=== PATIENT | female | born 1975 | race Caucasian/White ===

== ENCOUNTER 2025-06-04 11:22 | Observation (INO) | payer MEDICARE ==
[2025-06-04] MEDS ORDERED: TYLENOL 325 MG ONE (12:05)
[2025-06-04] MEDS ORDERED: ROCEPHIN 1 GM / 100 ML NaCl 1 GM/100 ML IVPB IV ONE (12:05)
[2025-06-04 12:11] LABS: BASOPHIL % 0.3 % (0.1-1.2); Basophil (Absolute #) 0.01 x10^3/uL (0.01-0.08); Eosinophil (Absolute #) 0 x10^3/uL (0.04-0.36); Hematocrit 33.9 % (34.1-44.9); Hemoglobin 11.2 g/dL (11.2-15.7); IMMATURE GRAN # 0.01 x10^3u/L (0.001-0.031); IMMATURE GRAN % 0.3 % (0.001-0.429); Lymphocyte (Absolute #) 0.90 x10^3/uL (1.18-3.74); Mean Corpuscular Hemoglobin 30.9 pg (25.6-32.2); Mean Corpuscular Hgb Concent. 33.0 g/dL (32.2-35.5); Monocyte (Absolute #) 0.33 x10^3/uL (0.24-0.86); NUCLEATED RBC # 0.00 x10^3u/L (0.00-0.012); NUCLEATED RBC % 0.0 % (0.00-0.2); Platelet Count 178 x10^3/uL (182-369); Red Blood Count 3.63 x10^6/uL (3.93-5.22); White Blood Count 3.5 x10^3/uL (3.98-10.04)
[2025-06-04] MEDS: TYLENOL 325 MG PO STA (12:12)
[2025-06-04] MEDS: ROCEPHIN 1 GM / 100 ML NaCl 1 GM/100 ML IVPB IV ONE (12:25)
[2025-06-04 12:26] LABS: Calcium 8.7 mg/dL (8.4-10.2); Creatinine 1 0.86 mg/dL (0.52-1.04); EST GLOMERULAR FILTRATION RATE 83.8 ML/MIN; Glucose 93.0 mg/dL (74-106); Potassium 4.2 mmol/L (3.5-5.1); SGOT/AST 30.0 U/L (14-36); SGPT/ALT 22.0 U/L (0-35); Total Protein 6.7 g/dL (6.3-8.2)
[2025-06-04] MEDS: Rocephin 1000 MG INJ IM ONE (12:28)
[2025-06-04 12:31] LABS: Glucose, Urine Negative (Negative); Protein,Urine Dip Negative (Negative)
[2025-06-04 12:35] LABS: Carbon Dioxide 16.0 mmol/L (22-30)
[2025-06-04 12:40] LABS: Amourphous Crystal Many /HPF (None Seen)
[2025-06-04 13:18] LABS: INFLUENZA A NEGATIVE (NEGATIVE); INFLUENZA B NEGATIVE (NEGATIVE); RESPIRATORY SYNCTIAL VIRUS NEGATIVE (NEGATIVE); SARS-CoV-2 Xpert Express NEGATIVE (NEGATIVE)
--- NOTE | 2025-06-04 13:37 | XRAY ---
Indication: Confusion. Multiple contiguous axial images obtained through the head without contrast. Comparison: None Normal appearing brain parenchyma, ventricles, and bony calvarium for patient's age. Complete opacification right maxillary/right frontal sinuses and mild mucosal thickening both ethmoid sinuses. Mastoid air cells are clear. Impression: Normal CT head without contrast exam. Incidental paranasal sinus disease.
--- NOTE | 2025-06-04 14:21 | ERPHSYRPT ---
- History of Present Illness Time Seen by Provider: 06/04/25 14:16 Source: patient Exam Limitations: no limitations Patient Subjective Stated Complaint: patient residential team leader reports that bid manager stated patient woke up and has been very off with her behavior this morning, shes showing levels of confusion and was unsure on if it was AM or PM they say sshe hasnt been sleeping well either Triage Nursing Assessment: patient is alert and orientedx3, behavior is altered, she is extremely confused and irritable. skin warm dry and intact. lung sounds clear, skin is flushed nad hot to the touch. able to ambulate by self, susana has residential team leader for the house she lives in with her. pupils are pin point, according to residential team leader with her she has been altered on behavior for some time . Physician History: 49-year-old female history of seizures hypothyroidism ADD presents to our ED for evaluation of unusual behavior. Patient is accompanied by her caregiver. Patient denies pain but caregiver states patient has not been sleeping well. She states that patient appears confused and irritable. No other symptomology. Patient voices no other complaints or concerns at this time. Portions of this note were created with voice recognition technology. There may be grammatical, spelling, punctuation or sound alike errors Timing/Duration: today Severity: moderate Modifying Factors: Improves With: nothing Associated Symptoms: denies symptoms Allergies/Adverse Reactions: chocolate Allergy (Verified 06/04/25 11:54) Hx Tetanus, Diphtheria Vaccination/Date Given: Yes Hx Influenza Vaccination/Date Given: Yes Hx Pneumococcal Vaccination/Date Given: No Immunizations Up to Date: Yes Travel Risk - International Travel Have you traveled outside of the country in past 3 weeks: No - Emerging Infectious Disease Are you exhibiting symptoms associated with any current EIDs: No - Review of Systems All Other Systems: Reviewed and Negative - Past Medical History Pertinent Past Medical History: Yes Neurological History: Seizures Endocrine Medical History: Hyperthyroidism GI Medical History: Other Psycho-Social History: Attention Deficit Disorder, Other Female Reproductive Disorders: Menstrual Problems, Other - Past Surgical History Past Surgical History: No Neuro Surgical History: No Pertinent History Cardiac: No Pertinent History Respiratory: No Pertinent History Gastrointestinal: No Pertinent History Genitourinary: No Pertinent History Musculoskeletal: No Pertinent History Female Surgical History: No Pertinent History Significant Family History: no pertinent family hx - Female History Hx Now: No - Social History Smoking Status: Never smoker Exposure to second hand smoke: No - Social Determinants of Health Will the patient participate in the screening: Yes Do you worry about a steady place to live?: No Do you have any problems with any of the following?: No known problems In the past 12 months,have you had to go without utilities?: No Transportation Issues: No Has anyone in your support network made you feel unsafe?: No Have you or anyone in your house had to go w/o enough food: No - Nursing Vital Signs Nursing Vital Signs: Initial Vital Signs Temperature 98.1 F 06/04/25 11:23 Pulse Rate 75 06/04/25 11:23 Respiratory Rate 18 06/04/25 11:23 O2 Sat by Pulse Oximetry 95 06/04/25 11:23 Pain Scale Pain Intensity 0 - Physical Exam General Appearance: no apparent distress, alert Eye Exam: PERRL/EOMI, eyes nml inspection Ears, Nose, Throat Exam: normal ENT inspection, TMs normal, pharynx normal, moist mucous membranes Neck Exam: normal inspection, full range of motion Respiratory Exam: normal breath sounds, lungs clear, No respiratory distress Cardiovascular Exam: regular rate/rhythm, normal heart sounds, normal peripheral pulses Gastrointestinal/Abdomen Exam: soft, normal bowel sounds, No tenderness, No mass Back Exam: normal inspection, normal range of motion, No CVA tenderness, No vertebral tenderness Extremity Exam: normal inspection, normal range of motion, pelvis stable Neurologic Exam: alert, oriented x 3, cooperative, normal mood/affect, sensation nml, No motor deficits Skin Exam: normal color, warm, dry, No rash Lymphatic Exam: No adenopathy SpO2 Interpretation: normal SpO2: 99 O2 Delivery: Room Air - Course Nursing assessment & vital signs reviewed: Yes EKG Interpreted by Me: RATE (73), Sinus Rhythm, NORMAL AXIS, NORMAL INTERVALS, NORMAL QRS - CT Exams Head CT Interpretation: Tele-radiologist Report (Normal CT head. Paranasal sinus disease) Ordered Tests: Active Orders 24 hr Category Date Time Status Traffic Line Painter STAT Care 06/04/25 12:01 Active EKG-ER Only STAT Care 06/04/25 12:00 Active IV Insertion STAT Care 06/04/25 12:00 Active Pulse Oximetry (ED) STAT Care 06/04/25 12:00 Active HEAD WITHOUT CONTRAST [CT] Stat Exams 06/04/25 12:23 Completed BLOOD CULTURE Stat Lab 06/04/25 12:20 Received CBC W DIFF Stat Lab 06/04/25 11:55 Completed CMP Stat Lab 06/04/25 11:55 Completed CULTURE,URINE Stat Lab 06/04/25 12:01 Received Lactic Acid Stat Lab 06/04/25 12:00 Completed UA W/RFX UR CULTURE Stat Lab 06/04/25 12:01 Completed Urine Triage Profile Stat Lab 06/04/25 14:41 Ordered Transfer Order Routine Transfer 06/04/25 Ordered Medication Summary Generic Name Dose Route Start Last Admin Trade Name Freq PRN Reason Stop Dose Admin Sodium Chloride 1,000 mls @ 100 mls/hr 06/04/25 12:00 06/04/25 12:14 Sodium Chloride 0.9% 1000 Ml IV 07/04/25 11:59 100 mls/hr .Q10H KEESHA Administration Discontinued Medications Generic Name Dose Route Start Last Admin Trade Name Freq PRN Reason Stop Dose Admin Acetaminophen 975 mg 06/04/25 12:00 06/04/25 12:12 Acetaminophen 325 Mg Tablet PO 06/04/25 12:01 975 mg STAT STA Administration Acetaminophen Confirm 06/04/25 12:05 Acetaminophen 325 Mg Tablet Administered 06/04/25 12:06 Dose 975 mg .ROUTE .STK-MED ONE Ceftriaxone Sodium 1,000 mg 06/04/25 12:00 06/04/25 12:28 Ceftriaxone Sodium 1000 Mg Inj Vial IM 06/04/25 12:01 Not Given STAT ONE Ceftriaxone Sodium Confirm 06/04/25 12:05 Rocephin 1 Gm / 100 Ml Nacl Administered 06/04/25 12:06 Dose 1 gm in 100 mls @ ud IV .STK-MED ONE Ceftriaxone Sodium 1 gm in 100 mls @ 200 mls/hr 06/04/25 12:23 06/04/25 12:56 Rocephin 1 Gm / 100 Ml Nacl IV 06/04/25 12:52 Infused STAT ONE Infusion Lab/Rad Data: Laboratory Result Diagrams 06/04/25 11:55 06/04/25 11:55 Laboratory Results 06/04/25 06/04/25 06/04/25 Range/Units 12:25 12:25 12:01 WBC (3.98-10.04) x10^3/uL RBC (3.93-5.22) x10^6/uL Hgb (11.2-15.7) g/dL Hct (34.1-44.9) % MCV (79.4-94.8) fL MCH (25.6-32.2) pg MCHC (32.2-35.5) g/dL RDW (11.7-14.4) % Plt Count (182-369) x10^3/uL MPV (9.4-12.3) fL Gran % (34.0-71.1) % Immature Gran % (Auto) (0.001-0.429) % Nucleat RBC Rel Count (0.00-0.2) % Eos # (Auto) (0.04-0.36) x10^3/uL Immature Gran # (Auto) (0.001-0.031) x10^3u/L Absolute Lymphs (auto) (1.18-3.74) x10^3/uL Absolute Monos (auto) (0.24-0.86) x10^3/uL Absolute Nucleated RBC (0.00-0.012) x10^3u/L Lymphocytes % (19.3-51.7) % Monocytes % (4.7-12.5) % Eosinophils % (0.7-5.8) % Basophils % (0.1-1.2) % Absolute Granulocytes (1.56-6.13) x10^3/uL Basophils # (0.01-0.08) x10^3/uL Sodium (135-145) mmol/L Potassium (3.5-5.1) mmol/L Chloride (98-107) mmol/L Carbon Dioxide (22-30) mmol/L Anion Gap (5-15) MEQ/L BUN (7-17) mg/dL Creatinine (0.52-1.04) mg/dL Estimated GFR ML/MIN Glucose (74-106) mg/dL Lactic Acid (0.4-2.0) Calcium (8.4-10.2) mg/dL Total Bilirubin (0.2-1.3) mg/dL AST (14-36) U/L ALT (0-35) U/L Alkaline Phosphatase (38-126) U/L Serum Total Protein (6.3-8.2) g/dL Albumin (3.5-5.0) g/dL Urine Color Yellow (Yellow) Urine Appearance Turbid A (Clear) Urine pH 7.5 (4.6-8.0) Ur Specific [place] 1.015 (1.005-1.030) Urine Protein Negative (Negative) Urine Glucose (UA) Negative (Negative) mg/dL Urine Ketones Negative (Negative) Urine Blood NHT (Negative) Urine Nitrite Negative (Negative) Urine Bilirubin Negative (Negative) Urine Urobilinogen 1.0 A (0.2) mg/dL Ur Leukocyte Esterase Moderate A (Negative) U Hyaline Cast (Auto) NONE SEEN (0-2) /LPF Urine Microscopic RBC 11-20 A (0-5) /HPF Urine Microscopic WBC 6-10 A (0-5) /HPF Ur Epithelial Cells Moderate A (None Seen) /HPF Amorphous Crystals Many A (None Seen) /HPF Urine Bacteria Many A (None Seen) /HPF Urine Culture Reflexed YES (NO) Influenza Type A Ag NEGATIVE (NEGATIVE) Influenza Type B Ag NEGATIVE (NEGATIVE) RSV (PCR) NEGATIVE (NEGATIVE) SARS-CoV-2 (PCR) NEGATIVE (NEGATIVE) Group A Strep Antibody NOT DETECTED (NEGATIVE) 06/04/25 06/04/25 06/04/25 Range/Units 12:00 11:55 11:55 WBC 3.5 L (3.98-10.04) x10^3/uL RBC 3.63 L (3.93-5.22) x10^6/uL Hgb 11.2 (11.2-15.7) g/dL Hct 33.9 L (34.1-44.9) % MCV 93.4 (79.4-94.8) fL MCH 30.9 (25.6-32.2) pg MCHC 33.0 (32.2-35.5) g/dL RDW 13.2 (11.7-14.4) % Plt Count 178 L (182-369) x10^3/uL MPV 10.1 (9.4-12.3) fL Gran % 64.6 (34.0-71.1) % Immature Gran % (Auto) 0.3 (0.001-0.429) % Nucleat RBC Rel Count 0.0 (0.00-0.2) % Eos # (Auto) 0 L (0.04-0.36) x10^3/uL Immature Gran # (Auto) 0.01 (0.001-0.031) x10^3u/L Absolute Lymphs (auto) 0.90 L (1.18-3.74) x10^3/uL Absolute Monos (auto) 0.33 (0.24-0.86) x10^3/uL Absolute Nucleated RBC 0.00 (0.00-0.012) x10^3u/L Lymphocytes % 25.5 (19.3-51.7) % Monocytes % 9.3 (4.7-12.5) % Eosinophils % 0.0 L (0.7-5.8) % Basophils % 0.3 (0.1-1.2) % Absolute Granulocytes 2.28 (1.56-6.13) x10^3/uL Basophils # 0.01 (0.01-0.08) x10^3/uL Sodium 135 (135-145) mmol/L Potassium 4.2 (3.5-5.1) mmol/L Chloride 108 H (98-107) mmol/L Carbon Dioxide 16 L* (22-30) mmol/L Anion Gap 15.4 H (5-15) MEQ/L BUN 15 (7-17) mg/dL Creatinine 0.86 (0.52-1.04) mg/dL Estimated GFR 83.8 ML/MIN Glucose 93 (74-106) mg/dL Lactic Acid 0.9 (0.4-2.0) Calcium 8.7 (8.4-10.2) mg/dL Total Bilirubin 0.30 (0.2-1.3) mg/dL AST 30 (14-36) U/L ALT 22 (0-35) U/L Alkaline Phosphatase 74 (38-126) U/L Serum Total Protein 6.7 (6.3-8.2) g/dL Albumin 4.2 (3.5-5.0) g/dL Urine Color (Yellow) Urine Appearance (Clear) Urine pH (4.6-8.0) Ur Specific [place] (1.005-1.030) Urine Protein (Negative) Urine Glucose (UA) (Negative) mg/dL Urine Ketones (Negative) Urine Blood (Negative) Urine Nitrite (Negative) Urine Bilirubin (Negative) Urine Urobilinogen (0.2) mg/dL Ur Leukocyte Esterase (Negative) U Hyaline Cast (Auto) (0-2) /LPF Urine Microscopic RBC (0-5) /HPF Urine Microscopic WBC (0-5) /HPF Ur Epithelial Cells (None Seen) /HPF Amorphous Crystals (None Seen) /HPF Urine Bacteria (None Seen) /HPF Urine Culture Reflexed (NO) Influenza Type A Ag (NEGATIVE) Influenza Type B Ag (NEGATIVE) RSV (PCR) (NEGATIVE) SARS-CoV-2 (PCR) (NEGATIVE) Group A Strep Antibody (NEGATIVE) - Progress Progress: improved Progress Note: 06/04/25 14:59 49-year-old female history of seizures hypothyroidism ADD presents to our ED for evaluation of unusual behavior. Patient is accompanied by her caregiver. Patient denies pain but caregiver states patient has not been sleeping well. She states that patient appears confused and irritable. No other symptomology. Physical exam nonremarkable. Workup reveals a urinary tract infection with a leukopenia. IV antibiotics obtained. Blood cultures pending. Patient is acidotic with a bicarb of 16. IV fluids infusing. Patient reassessed. Vital stable. Patient will require hospitalization for further evaluation and treatment. Caregiver at bedside. She agrees to admission at [facility] for further evaluation and treatment. They voiced no other complaints or concerns at this time. Portions of this note were created with voice recognition technology. There may be grammatical, spelling, punctuation or sound alike errors History obtained from patient and primary caregiver. Differential diagnosis includes sepsis, TIA, lactic acidosis Portions of this note were created with voice recognition technology. There may be grammatical, spelling, punctuation or sound alike errors Complexity of problems addressed is moderate acute complicated. No critical care time. Complexity of data reviewed and analyzed is extensive. Test ordered test reviewed results analyzed and correlated clinically with history and physical exam. Management discussed with hospitalist who accepts admission to observation at 2:54 PM. Risk of complication and or risk of morbidity/mortality of patient management is high. Patient requires hospitalization for further evaluation and treatment. Vital stable. Time spent in patient is approximately 15 minutes. Plan of care established for shared decision making. No social determinants of health present to impede follow-up. Portions of this note were created with voice recognition technology. There may be grammatical, spelling, punctuation or sound alike errors Counseled pt/family regarding: lab results, diagnosis, need for follow-up - Departure Departure Disposition: Observation Clinical Impression: Leukopenia, Metabolic acidosis, Urinary tract infection, Paranasal sinus disease Condition: Stable Critical Care Time: No Referrals: ELADIA GUILLERMO NP [Primary Care Provider, [facility]] - Follow up/PCP as directed
[2025-06-04 15:30] LABS: Amphetamine,Urine NEGATIVE (NEGATIVE); Barbiturate,Urine NEGATIVE (NEGATIVE); Benzodiazepine,Urine NEGATIVE (NEGATIVE); Cocaine,Urine NEGATIVE (NEGATIVE); Methadone,Urine NEGATIVE (NEGATIVE); Opiate,Urine NEGATIVE (NEGATIVE); PCP,Urine NEGATIVE (NEGATIVE); THC,Urine NEGATIVE (NEGATIVE)
--- NOTE | 2025-06-04 15:42 | PCM.HP ---
History of Present Illness - Chief Complaint Chief Complaint: Altered mental status, metabolic acidosis Date: 06/04/25 History of Present Illness: is a 49 year old female with a pmhx of seizure disorder, GERD, OCD,Constipation, hypothyroidism, and ADHD who presented to ED 06/04/25 with caregiver Norma present providing history. Per caregiver report over the past few days patient has been more fatigued than normal and not sleeping well. This morning the patient was again noted to appear more fatigued than normal but seemed increasing confused and unable to orient to time. She also reports that patient had recent complaints of low abdominal pain. No recent seizures, fevers, or medication changes were reported. Upon my exam patient is A&O x 3 with no complaints. Upon arrival to ED, vitals stable. EKG demonstrated normal sinus rhythm at 73 bpm with normal axis, intervals, and QRS morphology. CT head without contrast revealed no acute intracranial abnormality; mild incidental paranasal sinus disease was noted. Lab findings remarkable for leukopenia with WBC 3.5 , chloride 108 , CO2 16, and an anion gap of 15.4, consistent with mild metabolic acidosis. Urinalysis demonstrated moderate leukocyte esterase, microscopic RBCs and WBCs, amorphous crystals, and the presence of bacteriasuggestive of urinary tract infection. Respiratory viral panel was negative. In the ED, she received IV fluids, ceftriaxone, and acetaminophen. She was admitted for further observation and management of suspected urinary tract infection with associated metabolic encephalopathy and mild metabolic acidosis. - Review of Systems Constitutional: Fatigue Eyes: No Symptoms Ears, Nose, & Throat: No Symptoms Respiratory: No Symptoms Cardiac: No Symptoms Abdominal/Gastrointestinal: No Symptoms Genitourinary Symptoms: No Symptoms Musculoskeletal: No Symptoms Skin: No Symptoms Neurological: No Symptoms Psychological: No Symptoms Endocrine: No Symptoms Hematologic/Lymphatic: No Symptoms Immunological/Allergic: No Symptoms Medications & Allergies Allergies/Adverse Reactions: Allergies Allergy/AdvReac Type Severity Reaction Status Date / Time chocolate Allergy Verified 06/04/25 11:54 - Past Medical History Past Medical History: Yes Neurological History: Seizures Endocrine Medical History: Hyperthyroidism GI Medical History: Other Pyscho-Social History: Attention Deficit Disorder, Other Reproductive Disorders: Menstrual Problems, Other - Female History Are you now?: No - Past Surgical History Past Surgical History: No Neuro Surgical History: No Pertinent History Cardiac History: No Pertinent History Respiratory Surgery: No Pertinent History GI Surgical History: No Pertinent History Genitourinary Surgical Hx: No Pertinent History Musculskeletal Surgical Hx: No Pertinent History Female Surgical History: No Pertinent History Significant Family History: no pertinent family hx - Social History Smoking Status: Never smoker Exposure to second hand smoke: No Alcohol: None - Social Determinants of Health Will the patient participate in the screening: Yes Do you worry about a steady place to live?: No Do you have any problems with any of the following?: No known problems In the past 12 months,have you had to go without utilities?: No Have you or anyone in your house had to go without enough: No Transportation Issues: No Has anyone in your support network made you feel unsafe?: No - Physical Exam Vital Signs: Vital Signs - 24 hr Temp Pulse Resp BP BP Pulse Ox 06/04/25 15:27 97.7 F 71 16 122/75 99 06/04/25 15:02 99 06/04/25 15:00 66 18 152/99 99 06/04/25 14:57 152/86 06/04/25 14:42 65 16 111/66 99 06/04/25 14:40 63 16 152/86 99 06/04/25 14:30 165/106 97 06/04/25 14:20 63 19 100 06/04/25 14:10 62 15 99 06/04/25 14:00 65 16 99 06/04/25 13:50 67 14 99 06/04/25 13:40 66 16 99 06/04/25 13:30 67 19 100 06/04/25 13:20 70 18 100 06/04/25 13:10 71 16 06/04/25 13:00 72 21 100 06/04/25 12:54 71 15 99 06/04/25 12:40 71 16 100 06/04/25 12:30 70 18 100 06/04/25 12:20 72 13 98 06/04/25 12:10 74 15 95 06/04/25 12:00 73 16 100 06/04/25 11:58 98 F 74 18 99 06/04/25 11:23 98.1 F 75 18 95 General Appearance: no apparent distress Neurologic Exam: alert, oriented x 3, cooperative Eye Exam: PERRL/EOMI Ears, Nose, Throat Exam: normal ENT inspection Neck Exam: normal inspection Respiratory Exam: normal breath sounds, lungs clear Cardiovascular Exam: regular rate/rhythm, normal heart sounds Gastrointestinal/Abdomen Exam: soft, normal bowel sounds Pelvic Exam: not done Rectal Exam: deferred Back Exam: normal inspection Extremity Exam: normal inspection Skin Exam: normal color Results - Labs Lab/Micro Results: Lab Results-Last 24 Hours 06/04/25 06/04/25 06/04/25 Range/Units 11:55 11:55 12:00 WBC 3.5 L (3.98-10.04) x10^3/uL RBC 3.63 L (3.93-5.22) x10^6/uL Hgb 11.2 (11.2-15.7) g/dL Hct 33.9 L (34.1-44.9) % MCV 93.4 (79.4-94.8) fL MCH 30.9 (25.6-32.2) pg MCHC 33.0 (32.2-35.5) g/dL RDW 13.2 (11.7-14.4) % Plt Count 178 L (182-369) x10^3/uL MPV 10.1 (9.4-12.3) fL Gran % 64.6 (34.0-71.1) % Immature Gran % (Auto) 0.3 (0.001-0.429) % Nucleat RBC Rel Count 0.0 (0.00-0.2) % Eos # (Auto) 0 L (0.04-0.36) x10^3/uL Immature Gran # (Auto) 0.01 (0.001-0.031) x10^3u/L Absolute Lymphs (auto) 0.90 L (1.18-3.74) x10^3/uL Absolute Monos (auto) 0.33 (0.24-0.86) x10^3/uL Absolute Nucleated RBC 0.00 (0.00-0.012) x10^3u/L Lymphocytes % 25.5 (19.3-51.7) % Monocytes % 9.3 (4.7-12.5) % Eosinophils % 0.0 L (0.7-5.8) % Basophils % 0.3 (0.1-1.2) % Absolute Granulocytes 2.28 (1.56-6.13) x10^3/uL Basophils # 0.01 (0.01-0.08) x10^3/uL Sodium 135 (135-145) mmol/L Potassium 4.2 (3.5-5.1) mmol/L Chloride 108 H (98-107) mmol/L Carbon Dioxide 16 L* (22-30) mmol/L Anion Gap 15.4 H (5-15) MEQ/L BUN 15 (7-17) mg/dL Creatinine 0.86 (0.52-1.04) mg/dL Estimated GFR 83.8 ML/MIN Glucose 93 (74-106) mg/dL Lactic Acid 0.9 (0.4-2.0) Calcium 8.7 (8.4-10.2) mg/dL Total Bilirubin 0.30 (0.2-1.3) mg/dL AST 30 (14-36) U/L ALT 22 (0-35) U/L Alkaline Phosphatase 74 (38-126) U/L Serum Total Protein 6.7 (6.3-8.2) g/dL Albumin 4.2 (3.5-5.0) g/dL Urine Color (Yellow) Urine Appearance (Clear) Urine pH (4.6-8.0) Ur Specific Crooks (1.005-1.030) Urine Protein (Negative) Urine Glucose (UA) (Negative) mg/dL Urine Ketones (Negative) Urine Blood (Negative) Urine Nitrite (Negative) Urine Bilirubin (Negative) Urine Urobilinogen (0.2) mg/dL Ur Leukocyte Esterase (Negative) U Hyaline Cast (Auto) (0-2) /LPF Urine Microscopic RBC (0-5) /HPF Urine Microscopic WBC (0-5) /HPF Ur Epithelial Cells (None Seen) /HPF Amorphous Crystals (None Seen) /HPF Urine Bacteria (None Seen) /HPF Urine Culture Reflexed (NO) Urine Opiates Level (NEGATIVE) Ur Methadone (NEGATIVE) Urine Barbiturates (NEGATIVE) Ur Phencyclidine (PCP) (NEGATIVE) Urine Amphetamine (NEGATIVE) U Benzodiazepine Level (NEGATIVE) Urine Cocaine (NEGATIVE) Urine Marijuana (THC) (NEGATIVE) Influenza Type A Ag (NEGATIVE) Influenza Type B Ag (NEGATIVE) RSV (PCR) (NEGATIVE) SARS-CoV-2 (PCR) (NEGATIVE) Group A Strep Antibody (NEGATIVE) 06/04/25 06/04/25 06/04/25 Range/Units 12: 12: 12:25 WBC (3.98-10.04) x10^3/uL RBC (3.93-5.22) x10^6/uL Hgb (11.2-15.7) g/dL Hct (34.1-44.9) % MCV (79.4-94.8) fL MCH (25.6-32.2) pg MCHC (32.2-35.5) g/dL RDW (11.7-14.4) % Plt Count (182-369) x10^3/uL MPV (9.4-12.3) fL Gran % (34.0-71.1) % Immature Gran % (Auto) (0.001-0.429) % Nucleat RBC Rel Count (0.00-0.2) % Eos # (Auto) (0.04-0.36) x10^3/uL Immature Gran # (Auto) (0.001-0.031) x10^3u/L Absolute Lymphs (auto) (1.18-3.74) x10^3/uL Absolute Monos (auto) (0.24-0.86) x10^3/uL Absolute Nucleated RBC (0.00-0.012) x10^3u/L Lymphocytes % (19.3-51.7) % Monocytes % (4.7-12.5) % Eosinophils % (0.7-5.8) % Basophils % (0.1-1.2) % Absolute Granulocytes (1.56-6.13) x10^3/uL Basophils # (0.01-0.08) x10^3/uL Sodium (135-145) mmol/L Potassium (3.5-5.1) mmol/L Chloride (98-107) mmol/L Carbon Dioxide (22-30) mmol/L Anion Gap (5-15) MEQ/L BUN (7-17) mg/dL Creatinine (0.52-1.04) mg/dL Estimated GFR ML/MIN Glucose (74-106) mg/dL Lactic Acid (0.4-2.0) Calcium (8.4-10.2) mg/dL Total Bilirubin (0.2-1.3) mg/dL AST (14-36) U/L ALT (0-35) U/L Alkaline Phosphatase (38-126) U/L Serum Total Protein (6.3-8.2) g/dL Albumin (3.5-5.0) g/dL Urine Color Yellow (Yellow) Urine Appearance Turbid A (Clear) Urine pH 7.5 (4.6-8.0) Ur Specific Crooks 1.015 (1.005-1.030) Urine Protein Negative (Negative) Urine Glucose (UA) Negative (Negative) mg/dL Urine Ketones Negative (Negative) Urine Blood NHT (Negative) Urine Nitrite Negative (Negative) Urine Bilirubin Negative (Negative) Urine Urobilinogen 1.0 A (0.2) mg/dL Ur Leukocyte Esterase Moderate A (Negative) U Hyaline Cast (Auto) NONE SEEN (0-2) /LPF Urine Microscopic RBC 11-20 A (0-5) /HPF Urine Microscopic WBC 6-10 A (0-5) /HPF Ur Epithelial Cells Moderate A (None Seen) /HPF Amorphous Crystals Many A (None Seen) /HPF Urine Bacteria Many A (None Seen) /HPF Urine Culture Reflexed YES (NO) Urine Opiates Level NEGATIVE (NEGATIVE) Ur Methadone NEGATIVE (NEGATIVE) Urine Barbiturates NEGATIVE (NEGATIVE) Ur Phencyclidine (PCP) NEGATIVE (NEGATIVE) Urine Amphetamine NEGATIVE (NEGATIVE) U Benzodiazepine Level NEGATIVE (NEGATIVE) Urine Cocaine NEGATIVE (NEGATIVE) Urine Marijuana (THC) NEGATIVE (NEGATIVE) Influenza Type A Ag (NEGATIVE) Influenza Type B Ag (NEGATIVE) RSV (PCR) (NEGATIVE) SARS-CoV-2 (PCR) (NEGATIVE) Group A Strep Antibody NOT DETECTED (NEGATIVE) 06/04/25 Range/Units 12:25 WBC (3.98-10.04) x10^3/uL RBC (3.93-5.22) x10^6/uL Hgb (11.2-15.7) g/dL Hct (34.1-44.9) % MCV (79.4-94.8) fL MCH (25.6-32.2) pg MCHC (32.2-35.5) g/dL RDW (11.7-14.4) % Plt Count (182-369) x10^3/uL MPV (9.4-12.3) fL Gran % (34.0-71.1) % Immature Gran % (Auto) (0.001-0.429) % Nucleat RBC Rel Count (0.00-0.2) % Eos # (Auto) (0.04-0.36) x10^3/uL Immature Gran # (Auto) (0.001-0.031) x10^3u/L Absolute Lymphs (auto) (1.18-3.74) x10^3/uL Absolute Monos (auto) (0.24-0.86) x10^3/uL Absolute Nucleated RBC (0.00-0.012) x10^3u/L Lymphocytes % (19.3-51.7) % Monocytes % (4.7-12.5) % Eosinophils % (0.7-5.8) % Basophils % (0.1-1.2) % Absolute Granulocytes (1.56-6.13) x10^3/uL Basophils # (0.01-0.08) x10^3/uL Sodium (135-145) mmol/L Potassium (3.5-5.1) mmol/L Chloride (98-107) mmol/L Carbon Dioxide (22-30) mmol/L Anion Gap (5-15) MEQ/L BUN (7-17) mg/dL Creatinine (0.52-1.04) mg/dL Estimated GFR ML/MIN Glucose (74-106) mg/dL Lactic Acid (0.4-2.0) Calcium (8.4-10.2) mg/dL Total Bilirubin (0.2-1.3) mg/dL AST (14-36) U/L ALT (0-35) U/L Alkaline Phosphatase (38-126) U/L Serum Total Protein (6.3-8.2) g/dL Albumin (3.5-5.0) g/dL Urine Color (Yellow) Urine Appearance (Clear) Urine pH (4.6-8.0) Ur Specific Crooks (1.005-1.030) Urine Protein (Negative) Urine Glucose (UA) (Negative) mg/dL Urine Ketones (Negative) Urine Blood (Negative) Urine Nitrite (Negative) Urine Bilirubin (Negative) Urine Urobilinogen (0.2) mg/dL Ur Leukocyte Esterase (Negative) U Hyaline Cast (Auto) (0-2) /LPF Urine Microscopic RBC (0-5) /HPF Urine Microscopic WBC (0-5) /HPF Ur Epithelial Cells (None Seen) /HPF Amorphous Crystals (None Seen) /HPF Urine Bacteria (None Seen) /HPF Urine Culture Reflexed (NO) Urine Opiates Level (NEGATIVE) Ur Methadone (NEGATIVE) Urine Barbiturates (NEGATIVE) Ur Phencyclidine (PCP) (NEGATIVE) Urine Amphetamine (NEGATIVE) U Benzodiazepine Level (NEGATIVE) Urine Cocaine (NEGATIVE) Urine Marijuana (THC) (NEGATIVE) Influenza Type A Ag NEGATIVE (NEGATIVE) Influenza Type B Ag NEGATIVE (NEGATIVE) RSV (PCR) NEGATIVE (NEGATIVE) SARS-CoV-2 (PCR) NEGATIVE (NEGATIVE) Group A Strep Antibody (NEGATIVE) - Radiology Impressions Radiology Exams & Impressions: Radiology Procedures Category Date Time Status HEAD WITHOUT CONTRAST [CT] Stat Exams 06/04/25 12:23 Completed Assessment/Plan (1) Metabolic encephalopathy Current Visit: Yes Status: Acute Assessment & Plan: -Confusion and disorientation likely multifactorial: infectious and metabolic. -CT head negative for acute pathology; no focal deficits. -IVF -Continue empiric ceftriaxone pending culture results. -Neuro checks and serial mental status assessments. Code(s): G93.41 - METABOLIC ENCEPHALOPATHY (2) UTI (urinary tract infection) Current Visit: Yes Status: Acute Assessment & Plan: UA with leukocytes, RBCs, and bacteria. -Continue ceftriaxone; adjust per culture results. -Monitor for fever or flank pain. Code(s): N39.0 - URINARY TRACT INFECTION, SITE NOT SPECIFIED (3) Metabolic acidosis Current Visit: Yes Status: Acute Assessment & Plan: -CO2 16 with AG 15.4 -Continue IVF; repeat labs every 4 hours (BMP) to assess for resolution. Code(s): E87.20 - ACIDOSIS, UNSPECIFIED (4) Seizure disorder Current Visit: Yes Status: Acute Assessment & Plan: -Continue home antiepileptic therapy; monitor for breakthrough events. Code(s): G40.909 - EPILEPSY, UNSP, NOT INTRACTABLE, WITHOUT STATUS EPILEPTICUS (5) Hypothyroid Current Visit: Yes Status: Acute Assessment & Plan: -continue levothyroxine -check TSH Code(s): E03.9 - HYPOTHYROIDISM, UNSPECIFIED (6) ADHD Current Visit: Yes Status: Acute Assessment & Plan: -Continue home regimen as tolerated; hold stimulant therapy if agitation or insomnia worsen VTE: SCD PPI: protonix Dispo: 1-2 days Code status: full code Plan of care time spent greater than 40 mins Telemedicine Encounter - Telemedicine Encounter Telemedicine Encounter: "The entirety of this encounter was performed via Telemedicine" This visit was performed using real-time audio and video connection between my location and thepatients locationwith the assistance of a surrogateat the patients location. Written or verbal consent was obtained from the patient/guardian to perform this visit [facility] technology. Any patient questions regarding the telemedicine interaction were answered.
[2025-06-04 16:36] LABS: Calcium 8.8 mg/dL (8.4-10.2); Carbon Dioxide 19.0 mmol/L (22-30); Creatinine 1 0.87 mg/dL (0.52-1.04); EST GLOMERULAR FILTRATION RATE 82.6 ML/MIN; Glucose 89.0 mg/dL (74-106); Potassium 4.1 mmol/L (3.5-5.1)
[2025-06-04] MEDS ORDERED: MEDICATION INTERVENTION MC SCH ×3 (17:15)
[2025-06-04 19:57] LABS: Calcium 8.9 mg/dL (8.4-10.2); Carbon Dioxide 20.0 mmol/L (22-30); Creatinine 1 0.98 mg/dL (0.52-1.04); EST GLOMERULAR FILTRATION RATE 71.6 ML/MIN; Glucose 156.0 mg/dL (74-106); Potassium 3.7 mmol/L (3.5-5.1)
[2025-06-04] MEDS ORDERED: CLOZAPINE 100 MG PO SCH (22:00)
[2025-06-04] MEDS ORDERED: TETRAHYDRALAZINE 0.05% Drops OP SCH (22:00)
[2025-06-04] MEDS ORDERED: CLOZAPINE 50 MG PO SCH (22:00)
[2025-06-04] MEDS ORDERED: [UNRECOGNIZED DRUG - OTHER] PO SCH (22:00)
[2025-06-04] MEDS ORDERED: DESMOPRESSIN ACETATE 0.2 MG PO SCH (22:00)
[2025-06-04] MEDS: Ativan 0.5 MG PO SCH (22:52)
[2025-06-04] MEDS: lamICTAL 100MG TABLET PO SCH (22:53)
[2025-06-04] MEDS: MELATONIN PO SCH (22:55)
[2025-06-04] MEDS: DESYREL 50 MG PO SCH (22:55)
[2025-06-04] MEDS: Artificial Tears 15 ML OP SCH (22:58)
[2025-06-04 23:32] VITALS: RESP 16
[2025-06-05 05:05] LABS: BASOPHIL % 0.0 % (0.1-1.2); Basophil (Absolute #) 0 x10^3/uL (0.01-0.08); Eosinophil (Absolute #) 0 x10^3/uL (0.04-0.36); Hematocrit 34.9 % (34.1-44.9); Hemoglobin 11.1 g/dL (11.2-15.7); IMMATURE GRAN # 0.02 x10^3u/L (0.001-0.031); IMMATURE GRAN % 0.5 % (0.001-0.429); Lymphocyte (Absolute #) 1.20 x10^3/uL (1.18-3.74); Mean Corpuscular Hemoglobin 30.0 pg (25.6-32.2); Mean Corpuscular Hgb Concent. 31.8 g/dL (32.2-35.5); Monocyte (Absolute #) 0.40 x10^3/uL (0.24-0.86); NUCLEATED RBC # 0.00 x10^3u/L (0.00-0.012); NUCLEATED RBC % 0.0 % (0.00-0.2); Platelet Count 178 x10^3/uL (182-369); Red Blood Count 3.70 x10^6/uL (3.93-5.22); White Blood Count 3.6 x10^3/uL (3.98-10.04)
--- NOTE | 2025-06-05 05:17 | PCM.NOTE ---
Date and Time: 06/05/25 0514 Subjective Assessment: is a 49 year old female with a pmhx of seizure disorder, GERD, OCD,Constipation, hypothyroidism, and ADHD who presented to ED 06/04/25 with caregiver Norma present providing history. Per caregiver report over the past few days patient has been more fatigued than normal and not sleeping well. This morning the patient was again noted to appear more fatigued than normal but seemed increasing confused and unable to orient to time. She also reports that patient had recent complaints of low abdominal pain. No recent seizures, fevers, or medication changes were reported. Upon my exam patient is A&O x 3 with no complaints. Upon arrival to ED, vitals stable. EKG demonstrated normal sinus rhythm at 73 bpm with normal axis, intervals, and QRS morphology. CT head without contrast revealed no acute intracranial abnormality; mild incidental paranasal sinus disease was noted. Lab findings remarkable for leukopenia with WBC 3.5 , chloride 108 , CO2 16, and an anion gap of 15.4, consistent with mild metabolic acidosis. Urinalysis demonstrated moderate leukocyte esterase, microscopic RBCs and WBCs, amorphous crystals, and the presence of bacteriasuggestive of urinary tract infection. Respiratory viral panel was negative. In the ED, she received IV fluids, ceftriaxone, and acetaminophen. She was admitted for further observation and management of suspected urinary tract infection with associated metabolic encephalopathy and mild metabolic acidosis. Objective Data Vital Signs: Vital Signs - 24 hr Temp Pulse Resp BP BP Pulse Ox 06/05/25 03:37 99.4 F 80 16 108/61 96 06/04/25 23:31 99.2 F 87 16 99/61 97 06/04/25 20:00 98.5 F 87 18 103/65 100 06/04/25 15:38 97.7 F 71 16 122/75 99 06/04/25 15:27 97.7 F 71 16 122/75 99 06/04/25 15:02 99 06/04/25 15:00 66 18 152/99 99 06/04/25 14:57 152/86 06/04/25 14:42 65 16 111/66 99 06/04/25 14:40 63 16 152/86 99 06/04/25 14:30 165/106 97 06/04/25 14:20 63 19 100 06/04/25 14:10 62 15 99 06/04/25 14:00 65 16 99 06/04/25 13:50 67 14 99 06/04/25 13:40 66 16 99 06/04/25 13:30 67 19 100 06/04/25 13:20 70 18 100 06/04/25 13:10 71 16 06/04/25 13:00 72 21 100 06/04/25 12:54 71 15 99 06/04/25 12:40 71 16 100 06/04/25 12:30 70 18 100 06/04/25 12:20 72 13 98 06/04/25 12:10 74 15 95 06/04/25 12:00 73 16 100 06/04/25 11:58 98 F 74 18 99 06/04/25 11:23 98.1 F 75 18 95 Pain Assessment - Last Documented Pain Intensity 0 Pain Scale Used 0-10 Pain Scale Intake and Output: Intake & Output 06/02/25 06/03/25 06/04/25 06/05/25 11:59 11:59 11:59 11:59 Intake Total 680 Output Total 1100 Balance -420 Weight 86.8 kg 86.8 kg Lab Results: Lab Results-Last 24 Hours 06/04/25 06/04/25 06/04/25 Range/Units 11:55 11:55 12:00 WBC 3.5 L (3.98-10.04) x10^3/uL RBC 3.63 L (3.93-5.22) x10^6/uL Hgb 11.2 (11.2-15.7) g/dL Hct 33.9 L (34.1-44.9) % MCV 93.4 (79.4-94.8) fL MCH 30.9 (25.6-32.2) pg MCHC 33.0 (32.2-35.5) g/dL RDW 13.2 (11.7-14.4) % Plt Count 178 L (182-369) x10^3/uL MPV 10.1 (9.4-12.3) fL Gran % 64.6 (34.0-71.1) % Immature Gran % (Auto) 0.3 (0.001-0.429) % Nucleat RBC Rel Count 0.0 (0.00-0.2) % Eos # (Auto) 0 L (0.04-0.36) x10^3/uL Immature Gran # (Auto) 0.01 (0.001-0.031) x10^3u/L Absolute Lymphs (auto) 0.90 L (1.18-3.74) x10^3/uL Absolute Monos (auto) 0.33 (0.24-0.86) x10^3/uL Absolute Nucleated RBC 0.00 (0.00-0.012) x10^3u/L Lymphocytes % 25.5 (19.3-51.7) % Monocytes % 9.3 (4.7-12.5) % Eosinophils % 0.0 L (0.7-5.8) % Basophils % 0.3 (0.1-1.2) % Absolute Granulocytes 2.28 (1.56-6.13) x10^3/uL Basophils # 0.01 (0.01-0.08) x10^3/uL Sodium 135 (135-145) mmol/L Potassium 4.2 (3.5-5.1) mmol/L Chloride 108 H (98-107) mmol/L Carbon Dioxide 16 L* (22-30) mmol/L Anion Gap 15.4 H (5-15) MEQ/L BUN 15 (7-17) mg/dL Creatinine 0.86 (0.52-1.04) mg/dL Estimated GFR 83.8 ML/MIN Glucose 93 (74-106) mg/dL Lactic Acid 0.9 (0.4-2.0) Calcium 8.7 (8.4-10.2) mg/dL Total Bilirubin 0.30 (0.2-1.3) mg/dL AST 30 (14-36) U/L ALT 22 (0-35) U/L Alkaline Phosphatase 74 (38-126) U/L Serum Total Protein 6.7 (6.3-8.2) g/dL Albumin 4.2 (3.5-5.0) g/dL Procalcitonin (0.030-0.080) ng/mL TSH 3rd Generation (0.470-4.680) mIU/L Urine Color (Yellow) Urine Appearance (Clear) Urine pH (4.6-8.0) Ur Specific Wheatcroft (1.005-1.030) Urine Protein (Negative) Urine Glucose (UA) (Negative) mg/dL Urine Ketones (Negative) Urine Blood (Negative) Urine Nitrite (Negative) Urine Bilirubin (Negative) Urine Urobilinogen (0.2) mg/dL Ur Leukocyte Esterase (Negative) U Hyaline Cast (Auto) (0-2) /LPF Urine Microscopic RBC (0-5) /HPF Urine Microscopic WBC (0-5) /HPF Ur Epithelial Cells (None Seen) /HPF Amorphous Crystals (None Seen) /HPF Urine Bacteria (None Seen) /HPF Urine Culture Reflexed (NO) Urine Opiates Level (NEGATIVE) Ur Methadone (NEGATIVE) Urine Barbiturates (NEGATIVE) Ur Phencyclidine (PCP) (NEGATIVE) Urine Amphetamine (NEGATIVE) U Benzodiazepine Level (NEGATIVE) Urine Cocaine (NEGATIVE) Urine Marijuana (THC) (NEGATIVE) Influenza Type A Ag (NEGATIVE) Influenza Type B Ag (NEGATIVE) RSV (PCR) (NEGATIVE) SARS-CoV-2 (PCR) (NEGATIVE) Group A Strep Antibody (NEGATIVE) 06/04/25 06/04/25 06/04/25 Range/Units 12:00 12:01 12:01 WBC (3.98-10.04) x10^3/uL RBC (3.93-5.22) x10^6/uL Hgb (11.2-15.7) g/dL Hct (34.1-44.9) % MCV (79.4-94.8) fL MCH (25.6-32.2) pg MCHC (32.2-35.5) g/dL RDW (11.7-14.4) % Plt Count (182-369) x10^3/uL MPV (9.4-12.3) fL Gran % (34.0-71.1) % Immature Gran % (Auto) (0.001-0.429) % Nucleat RBC Rel Count (0.00-0.2) % Eos # (Auto) (0.04-0.36) x10^3/uL Immature Gran # (Auto) (0.001-0.031) x10^3u/L Absolute Lymphs (auto) (1.18-3.74) x10^3/uL Absolute Monos (auto) (0.24-0.86) x10^3/uL Absolute Nucleated RBC (0.00-0.012) x10^3u/L Lymphocytes % (19.3-51.7) % Monocytes % (4.7-12.5) % Eosinophils % (0.7-5.8) % Basophils % (0.1-1.2) % Absolute Granulocytes (1.56-6.13) x10^3/uL Basophils # (0.01-0.08) x10^3/uL Sodium (135-145) mmol/L Potassium (3.5-5.1) mmol/L Chloride (98-107) mmol/L Carbon Dioxide (22-30) mmol/L Anion Gap (5-15) MEQ/L BUN (7-17) mg/dL Creatinine (0.52-1.04) mg/dL Estimated GFR ML/MIN Glucose (74-106) mg/dL Lactic Acid (0.4-2.0) Calcium (8.4-10.2) mg/dL Total Bilirubin (0.2-1.3) mg/dL AST (14-36) U/L ALT (0-35) U/L Alkaline Phosphatase (38-126) U/L Serum Total Protein (6.3-8.2) g/dL Albumin (3.5-5.0) g/dL Procalcitonin 0.043 (0.030-0.080) ng/mL TSH 3rd Generation (0.470-4.680) mIU/L Urine Color Yellow (Yellow) Urine Appearance Turbid A (Clear) Urine pH 7.5 (4.6-8.0) Ur Specific Wheatcroft 1.015 (1.005-1.030) Urine Protein Negative (Negative) Urine Glucose (UA) Negative (Negative) mg/dL Urine Ketones Negative (Negative) Urine Blood NHT (Negative) Urine Nitrite Negative (Negative) Urine Bilirubin Negative (Negative) Urine Urobilinogen 1.0 A (0.2) mg/dL Ur Leukocyte Esterase Moderate A (Negative) U Hyaline Cast (Auto) NONE SEEN (0-2) /LPF Urine Microscopic RBC 11-20 A (0-5) /HPF Urine Microscopic WBC 6-10 A (0-5) /HPF Ur Epithelial Cells Moderate A (None Seen) /HPF Amorphous Crystals Many A (None Seen) /HPF Urine Bacteria Many A (None Seen) /HPF Urine Culture Reflexed YES (NO) Urine Opiates Level NEGATIVE (NEGATIVE) Ur Methadone NEGATIVE (NEGATIVE) Urine Barbiturates NEGATIVE (NEGATIVE) Ur Phencyclidine (PCP) NEGATIVE (NEGATIVE) Urine Amphetamine NEGATIVE (NEGATIVE) U Benzodiazepine Level NEGATIVE (NEGATIVE) Urine Cocaine NEGATIVE (NEGATIVE) Urine Marijuana (THC) NEGATIVE (NEGATIVE) Influenza Type A Ag (NEGATIVE) Influenza Type B Ag (NEGATIVE) RSV (PCR) (NEGATIVE) SARS-CoV-2 (PCR) (NEGATIVE) Group A Strep Antibody (NEGATIVE) 06/04/25 06/04/25 06/04/25 Range/Units 12:25 12:25 16:10 WBC (3.98-10.04) x10^3/uL RBC (3.93-5.22) x10^6/uL Hgb (11.2-15.7) g/dL Hct (34.1-44.9) % MCV (79.4-94.8) fL MCH (25.6-32.2) pg MCHC (32.2-35.5) g/dL RDW (11.7-14.4) % Plt Count (182-369) x10^3/uL MPV (9.4-12.3) fL Gran % (34.0-71.1) % Immature Gran % (Auto) (0.001-0.429) % Nucleat RBC Rel Count (0.00-0.2) % Eos # (Auto) (0.04-0.36) x10^3/uL Immature Gran # (Auto) (0.001-0.031) x10^3u/L Absolute Lymphs (auto) (1.18-3.74) x10^3/uL Absolute Monos (auto) (0.24-0.86) x10^3/uL Absolute Nucleated RBC (0.00-0.012) x10^3u/L Lymphocytes % (19.3-51.7) % Monocytes % (4.7-12.5) % Eosinophils % (0.7-5.8) % Basophils % (0.1-1.2) % Absolute Granulocytes (1.56-6.13) x10^3/uL Basophils # (0.01-0.08) x10^3/uL Sodium (135-145) mmol/L Potassium (3.5-5.1) mmol/L Chloride (98-107) mmol/L Carbon Dioxide (22-30) mmol/L Anion Gap (5-15) MEQ/L BUN (7-17) mg/dL Creatinine (0.52-1.04) mg/dL Estimated GFR ML/MIN Glucose (74-106) mg/dL Lactic Acid 0.8 (0.4-2.0) Calcium (8.4-10.2) mg/dL Total Bilirubin (0.2-1.3) mg/dL AST (14-36) U/L ALT (0-35) U/L Alkaline Phosphatase (38-126) U/L Serum Total Protein (6.3-8.2) g/dL Albumin (3.5-5.0) g/dL Procalcitonin (0.030-0.080) ng/mL TSH 3rd Generation (0.470-4.680) mIU/L Urine Color (Yellow) Urine Appearance (Clear) Urine pH (4.6-8.0) Ur Specific Wheatcroft (1.005-1.030) Urine Protein (Negative) Urine Glucose (UA) (Negative) mg/dL Urine Ketones (Negative) Urine Blood (Negative) Urine Nitrite (Negative) Urine Bilirubin (Negative) Urine Urobilinogen (0.2) mg/dL Ur Leukocyte Esterase (Negative) U Hyaline Cast (Auto) (0-2) /LPF Urine Microscopic RBC (0-5) /HPF Urine Microscopic WBC (0-5) /HPF Ur Epithelial Cells (None Seen) /HPF Amorphous Crystals (None Seen) /HPF Urine Bacteria (None Seen) /HPF Urine Culture Reflexed (NO) Urine Opiates Level (NEGATIVE) Ur Methadone (NEGATIVE) Urine Barbiturates (NEGATIVE) Ur Phencyclidine (PCP) (NEGATIVE) Urine Amphetamine (NEGATIVE) U Benzodiazepine Level (NEGATIVE) Urine Cocaine (NEGATIVE) Urine Marijuana (THC) (NEGATIVE) Influenza Type A Ag NEGATIVE (NEGATIVE) Influenza Type B Ag NEGATIVE (NEGATIVE) RSV (PCR) NEGATIVE (NEGATIVE) SARS-CoV-2 (PCR) NEGATIVE (NEGATIVE) Group A Strep Antibody NOT DETECTED (NEGATIVE) 06/04/25 06/04/25 06/04/25 Range/Units 16:10 16:15 19:20 WBC (3.98-10.04) x10^3/uL RBC (3.93-5.22) x10^6/uL Hgb (11.2-15.7) g/dL Hct (34.1-44.9) % MCV (79.4-94.8) fL MCH (25.6-32.2) pg MCHC (32.2-35.5) g/dL RDW (11.7-14.4) % Plt Count (182-369) x10^3/uL MPV (9.4-12.3) fL Gran % (34.0-71.1) % Immature Gran % (Auto) (0.001-0.429) % Nucleat RBC Rel Count (0.00-0.2) % Eos # (Auto) (0.04-0.36) x10^3/uL Immature Gran # (Auto) (0.001-0.031) x10^3u/L Absolute Lymphs (auto) (1.18-3.74) x10^3/uL Absolute Monos (auto) (0.24-0.86) x10^3/uL Absolute Nucleated RBC (0.00-0.012) x10^3u/L Lymphocytes % (19.3-51.7) % Monocytes % (4.7-12.5) % Eosinophils % (0.7-5.8) % Basophils % (0.1-1.2) % Absolute Granulocytes (1.56-6.13) x10^3/uL Basophils # (0.01-0.08) x10^3/uL Sodium 138 140 (135-145) mmol/L Potassium 4.1 3.7 (3.5-5.1) mmol/L Chloride 110 H 112 H (98-107) mmol/L Carbon Dioxide 19 L 20 L (22-30) mmol/L Anion Gap 12.9 12.2 (5-15) MEQ/L BUN 13 11 (7-17) mg/dL Creatinine 0.87 0.98 (0.52-1.04) mg/dL Estimated GFR 82.6 71.6 ML/MIN Glucose 89 156 H (74-106) mg/dL Lactic Acid (0.4-2.0) Calcium 8.8 8.9 (8.4-10.2) mg/dL Total Bilirubin (0.2-1.3) mg/dL AST (14-36) U/L ALT (0-35) U/L Alkaline Phosphatase (38-126) U/L Serum Total Protein (6.3-8.2) g/dL Albumin (3.5-5.0) g/dL Procalcitonin (0.030-0.080) ng/mL TSH 3rd Generation 1.955 (0.470-4.680) mIU/L Urine Color (Yellow) Urine Appearance (Clear) Urine pH (4.6-8.0) Ur Specific Wheatcroft (1.005-1.030) Urine Protein (Negative) Urine Glucose (UA) (Negative) mg/dL Urine Ketones (Negative) Urine Blood (Negative) Urine Nitrite (Negative) Urine Bilirubin (Negative) Urine Urobilinogen (0.2) mg/dL Ur Leukocyte Esterase (Negative) U Hyaline Cast (Auto) (0-2) /LPF Urine Microscopic RBC (0-5) /HPF Urine Microscopic WBC (0-5) /HPF Ur Epithelial Cells (None Seen) /HPF Amorphous Crystals (None Seen) /HPF Urine Bacteria (None Seen) /HPF Urine Culture Reflexed (NO) Urine Opiates Level (NEGATIVE) Ur Methadone (NEGATIVE) Urine Barbiturates (NEGATIVE) Ur Phencyclidine (PCP) (NEGATIVE) Urine Amphetamine (NEGATIVE) U Benzodiazepine Level (NEGATIVE) Urine Cocaine (NEGATIVE) Urine Marijuana (THC) (NEGATIVE) Influenza Type A Ag (NEGATIVE) Influenza Type B Ag (NEGATIVE) RSV (PCR) (NEGATIVE) SARS-CoV-2 (PCR) (NEGATIVE) Group A Strep Antibody (NEGATIVE) 06/05/25 Range/Units 05:04 WBC 3.6 L (3.98-10.04) x10^3/uL RBC 3.70 L (3.93-5.22) x10^6/uL Hgb 11.1 L (11.2-15.7) g/dL Hct 34.9 (34.1-44.9) % MCV 94.3 (79.4-94.8) fL MCH 30.0 (25.6-32.2) pg MCHC 31.8 L (32.2-35.5) g/dL RDW 13.2 (11.7-14.4) % Plt Count 178 L (182-369) x10^3/uL MPV 10.0 (9.4-12.3) fL Gran % 55.5 (34.0-71.1) % Immature Gran % (Auto) 0.5 H (0.001-0.429) % Nucleat RBC Rel Count 0.0 (0.00-0.2) % Eos # (Auto) 0 L (0.04-0.36) x10^3/uL Immature Gran # (Auto) 0.02 (0.001-0.031) x10^3u/L Absolute Lymphs (auto) 1.20 (1.18-3.74) x10^3/uL Absolute Monos (auto) 0.40 (0.24-0.86) x10^3/uL Absolute Nucleated RBC 0.00 (0.00-0.012) x10^3u/L Lymphocytes % 33.0 (19.3-51.7) % Monocytes % 11.0 (4.7-12.5) % Eosinophils % 0.0 L (0.7-5.8) % Basophils % 0.0 L (0.1-1.2) % Absolute Granulocytes 2.02 (1.56-6.13) x10^3/uL Basophils # 0 L (0.01-0.08) x10^3/uL Sodium (135-145) mmol/L Potassium (3.5-5.1) mmol/L Chloride (98-107) mmol/L Carbon Dioxide (22-30) mmol/L Anion Gap (5-15) MEQ/L BUN (7-17) mg/dL Creatinine (0.52-1.04) mg/dL Estimated GFR ML/MIN Glucose (74-106) mg/dL Lactic Acid (0.4-2.0) Calcium (8.4-10.2) mg/dL Total Bilirubin (0.2-1.3) mg/dL AST (14-36) U/L ALT (0-35) U/L Alkaline Phosphatase (38-126) U/L Serum Total Protein (6.3-8.2) g/dL Albumin (3.5-5.0) g/dL Procalcitonin (0.030-0.080) ng/mL TSH 3rd Generation (0.470-4.680) mIU/L Urine Color (Yellow) Urine Appearance (Clear) Urine pH (4.6-8.0) Ur Specific Wheatcroft (1.005-1.030) Urine Protein (Negative) Urine Glucose (UA) (Negative) mg/dL Urine Ketones (Negative) Urine Blood (Negative) Urine Nitrite (Negative) Urine Bilirubin (Negative) Urine Urobilinogen (0.2) mg/dL Ur Leukocyte Esterase (Negative) U Hyaline Cast (Auto) (0-2) /LPF Urine Microscopic RBC (0-5) /HPF Urine Microscopic WBC (0-5) /HPF Ur Epithelial Cells (None Seen) /HPF Amorphous Crystals (None Seen) /HPF Urine Bacteria (None Seen) /HPF Urine Culture Reflexed (NO) Urine Opiates Level (NEGATIVE) Ur Methadone (NEGATIVE) Urine Barbiturates (NEGATIVE) Ur Phencyclidine (PCP) (NEGATIVE) Urine Amphetamine (NEGATIVE) U Benzodiazepine Level (NEGATIVE) Urine Cocaine (NEGATIVE) Urine Marijuana (THC) (NEGATIVE) Influenza Type A Ag (NEGATIVE) Influenza Type B Ag (NEGATIVE) RSV (PCR) (NEGATIVE) SARS-CoV-2 (PCR) (NEGATIVE) Group A Strep Antibody (NEGATIVE) Radiology Exams: Radiology Procedures Category Date Time Status HEAD WITHOUT CONTRAST [CT] Stat Exams 06/04/25 12:23 Completed Medications: Medications Generic Name Dose Route Start Last Admin Trade Name Freq PRN Reason Stop Dose Admin Artificial Tears 0 ml 06/04/25 22:00 06/04/25 22:58 Carboxymethylcellulose Sodium 15 Ml Bottle OP 07/04/25 21:59 15 ml TID KEESHA Administration Fluoxetine HCl 20 mg 06/05/25 10:00 Fluoxetine Hcl 20 Mg Cap PO 07/05/25 09:59 DAILY KEESHA Sodium Chloride 1,000 mls @ 100 mls/hr 06/04/25 12:00 06/04/25 23:55 Sodium Chloride 0.9% 1000 Ml IV 07/04/25 11:59 100 mls/hr .Q10H KEESHA Administration Ceftriaxone Sodium 1 gm in 100 mls @ 200 mls/hr 06/05/25 10:00 Rocephin 1 Gm / 100 Ml Nacl IV 07/05/25 09:59 Q24H10 KEESHA Lamotrigine 150 mg 06/04/25 22:00 06/04/25 22:53 Lamotrigine 100 Mg Tab PO 07/04/25 21:59 150 mg BID KEESHA Administration Levothyroxine Sodium 100 mcg 06/05/25 10:00 Levothyroxine Sodium 100 Mcg Tablet PO 07/05/25 09:59 DAILY KEESHA Levothyroxine Sodium 50 mcg 06/05/25 10:00 Levothyroxine Sodium 50 Mcg Tablet PO 07/05/25 09:59 DAILY KEESHA Loratadine 10 mg 06/05/25 10:00 Loratadine 10 Mg Tablet PO 07/05/25 09:59 DAILY KEESHA Lorazepam 0.25 mg 06/04/25 22:00 06/04/25 22:52 Lorazepam 0.5 Mg Tablet PO 07/04/25 21:59 0.25 mg HS KEESHA Administration Melatonin 9 mg 06/04/25 22:00 06/04/25 22:55 Melatonin 3 Mg Tablet PO 07/04/25 21:59 9 mg HS KEESHA Administration Miscellaneous Information 1 each 06/04/25 17:15 Medication Intervention 1 Each Each 07/04/25 17:14 .RN TO CHECK KEESHA Miscellaneous Information 1 each 06/04/25 17:15 Medication Intervention 1 Each Each 07/04/25 17:14 .RN TO CHECK KEESHA Miscellaneous Information 1 each 06/04/25 17:15 Medication Intervention 1 Each Each 07/04/25 17:14 .RN TO CHECK KEESHA Pantoprazole Sodium 40 mg 06/05/25 10:00 Protonix (Pantoprazole) 40 Mg Tablet PO 07/05/25 09:59 DAILY KEESHA Polyethylene Glycol 17 gm 06/05/25 10:00 Polyethylene Glycol 3350 17 Gm Packet PO 07/05/25 09:59 DAILY KEESHA Propranolol HCl 40 mg 06/05/25 10:00 Propranolol Hcl 20 Mg Tablet PO 07/05/25 09:59 DAILY KEESHA Topiramate 200 mg 06/05/25 10:00 Topiramate 50 Mg Tablet PO 07/05/25 09:59 QAM KEESHA Trazodone HCl 100 mg 06/04/25 22:00 06/04/25 22:55 Trazodone Hcl 50 Mg Tablet PO 07/04/25 21:59 100 mg HS KEESHA Administration Discontinued Medications Generic Name Dose Route Start Last Admin Trade Name Freq PRN Reason Stop Dose Admin Acetaminophen 975 mg 06/04/25 12:00 06/04/25 12:12 Acetaminophen 325 Mg Tablet PO 06/04/25 12:01 975 mg STAT STA Administration Acetaminophen Confirm 06/04/25 12:05 Acetaminophen 325 Mg Tablet Administered 06/04/25 12:06 Dose 975 mg .ROUTE .STK-MED ONE Ceftriaxone Sodium 1,000 mg 06/04/25 12:00 06/04/25 12:28 Ceftriaxone Sodium 1000 Mg Inj Vial IM 06/04/25 12:01 Not Given STAT ONE Ceftriaxone Sodium Confirm 06/04/25 12:05 Rocephin 1 Gm / 100 Ml Nacl Administered 06/04/25 12:06 Dose 1 gm in 100 mls @ ud IV .STK-MED ONE Ceftriaxone Sodium 1 gm in 100 mls @ 200 mls/hr 06/04/25 12:23 06/04/25 12:56 Rocephin 1 Gm / 100 Ml Nacl IV 06/04/25 12:52 Infused STAT ONE Infusion Assessment/Plan (1) Metabolic encephalopathy Current Visit: Yes Status: Acute Assessment & Plan: -Confusion and disorientation likely multifactorial: infectious and metabolic. -CT head negative for acute pathology; no focal deficits. -IVF -Continue empiric ceftriaxone pending culture results. -Neuro checks and serial mental status assessments. Code(s): G93.41 - METABOLIC ENCEPHALOPATHY Pancytopenia -WBC at 3.6, RBC 3.70, Plt at 178- trend (2) UTI (urinary tract infection) Current Visit: Yes Status: Acute Assessment & Plan: UA with leukocytes, RBCs, and bacteria. -Continue ceftriaxone; adjust per culture results. -Monitor for fever or flank pain. Code(s): N39.0 - URINARY TRACT INFECTION, SITE NOT SPECIFIED (3) Metabolic acidosis Current Visit: Yes Status: Acute Assessment & Plan: -CO2 16 with AG 15.4 -Continue IVF; repeat labs every 4 hours (BMP) to assess for resolution. Code(s): E87.20 - ACIDOSIS, UNSPECIFIED (4) Seizure disorder Current Visit: Yes Status: Acute Assessment & Plan: -Continue home antiepileptic therapy; monitor for breakthrough events. Code(s): G40.909 - EPILEPSY, UNSP, NOT INTRACTABLE, WITHOUT STATUS EPILEPTICUS (5) Hypothyroid Current Visit: Yes Status: Acute Assessment & Plan: -continue levothyroxine -check TSH Code(s): E03.9 - HYPOTHYROIDISM, UNSPECIFIED (6) ADHD Current Visit: Yes Status: Acute Assessment & Plan: -Continue home regimen as tolerated; hold stimulant therapy if agitation or insomnia worsen VTE: SCD PPI: protonix Dispo: 1-2 days Code status: full code Plan of care time spent greater than 40 mins Code(s): G93.41 - METABOLIC ENCEPHALOPATHY (2) UTI (urinary tract infection) Current Visit: Yes Status: Acute Code(s): N39.0 - URINARY TRACT INFECTION, SITE NOT SPECIFIED (3) Metabolic acidosis Current Visit: Yes Status: Acute Code(s): E87.20 - ACIDOSIS, UNSPECIFIED (4) Seizure disorder Current Visit: Yes Status: Acute Code(s): G40.909 - EPILEPSY, UNSP, NOT INTRACTABLE, WITHOUT STATUS EPILEPTICUS (5) Hypothyroid Current Visit: Yes Status: Acute Code(s): E03.9 - HYPOTHYROIDISM, UNSPECIFIED (6) ADHD Current Visit: Yes Status: Acute (7) Pancytopenia Current Visit: Yes Status: Acute Code(s): D61.818 - OTHER PANCYTOPENIA
[2025-06-05 05:26] LABS: Calcium 8.1 mg/dL (8.4-10.2); Carbon Dioxide 18 mmol/L (22-30); Creatinine 1 0.86 mg/dL (0.52-1.04); EST GLOMERULAR FILTRATION RATE 83.8 ML/MIN; Glucose 92 mg/dL (74-106); Potassium 4.0 mmol/L (3.5-5.1); SGOT/AST 21 U/L (14-36); SGPT/ALT 19 U/L (0-35); Total Protein 6.2 g/dL (6.3-8.2)
[2025-06-05] MEDS: ROCEPHIN 1 GM / 100 ML NaCl 1 GM/100 ML IVPB IV SCH (08:55)
[2025-06-05] MEDS: TOPIRAMATE PO SCH (08:55)
[2025-06-05] MEDS: Inderal PO SCH (08:56)
[2025-06-05] MEDS: CLARITIN 10 MG PO SCH (08:57)
[2025-06-05] MEDS: SYNTHROID 100 MCG PO SCH (08:57)
[2025-06-05] MEDS: SYNTHROID 50 MCG PO SCH (08:57)
[2025-06-05] MEDS: Prozac 20 MG PO SCH (08:58)
[2025-06-05] MEDS: Protonix 40MG Tablet PO SCH (08:58)
[2025-06-05] MEDS: Miralax Powder 17GM PACKET PO SCH (08:59)
[2025-06-05] MEDS: SODIUM BICARBONATE PO SCH (09:02)
[2025-06-05 11:36] VITALS: BP 108/61; PULSE 81; TEMP 98; O2SAT 93
--- NOTE | 2025-06-05 11:52 | PCM.DS ---
Discharge Summary Date of Admission: 06/04/25 15:20 Date of Discharge: 06/05/25 Admitting Physician: MONIK GUARDADO MD Primary Care Provider: ELADIA GUILLERMO Allergies Allergies chocolate Allergy (Verified 06/04/25 16:14) Hospital Summary - Hospital Course Hospital Course: Ms. Jeffers is a 49-year-old female with past medical history of seizure disorder, GERD, OCD, constipation, hypothyroidism, and ADHD presented to the ED on 06/04/25 accompanied by her caregiver, Norma, who provided collateral history. Over several days prior to admission, the patient had exhibited increased fatigue and poor sleep, followed by new-onset confusion and disorientation to time on the morning of presentation. She also reported intermittent lower abdominal pain. There were no recent seizures, fevers, or medication changes. On arrival, vital signs were stable. EKG showed normal sinus rhythm at 73 bpm with normal intervals and axis. CT head without contrast demonstrated no acute intracranial abnormality, with mild incidental paranasal sinus disease. Initial labs revealed mild leukopenia (WBC 3.5 ), chloride 108, CO2 16, and an anion gap of 15.4consistent with mild metabolic acidosis. Urinalysis demonstrated moderate leukocyte esterase, microscopic hematuria and pyuria, amorphous crystals, and bacteria, suggestive of urinary tract infection. Respiratory viral panel was negative. In the ED, she received IV fluids, ceftriaxone, and acetaminophen, and was admitted for observation and management of suspected urinary tract infection with associated metabolic encephalopathy and acidosis. During hospitalization, mental status improved to baseline, and repeat CO2 brian to 18, Gap normalized. She remained hemodynamically stable, afebrile, and asymptomatic. She is now requesting discharge and is deemed medically stable to return home. Discharge will be on cefdinir, with close PCP follow-up for final urine culture results, repeat urinalysis, and reassessment of leukopenia if persistent. Discharge Note New Diagnosis: UTI New Medications: Cefdinir Follow Up: PCP Results pending: Ucult Outpatient testing to order: UA for UTI resolution/ repeat CBC for pancytopenia/ BMP for acidosis I spent 35 minutes [id number] with the patient on the day of discharge performing discharge exam, discussing hospital stay and discharge instructions with patient and caregivers, preparation of discharge records, prescriptions & referral forms and addressing any questions/concerns the patient had as documented above. - Vitals & Intake/Output Vital Signs: Vital Signs Temperature 98.0 F 06/05/25 11:35 Pulse Rate 81 06/05/25 11:35 Respiratory Rate 16 06/05/25 11:35 Blood Pressure 108/61 06/05/25 11:35 O2 Sat by Pulse Oximetry 93 L 06/05/25 11:35 Intake & Output: Intake & Output 06/02/25 06/03/25 06/04/25 06/05/25 11:59 11:59 11:59 11:59 Intake Total 1740 Output Total 2100 Balance -360 Weight 86.8 kg 86.6 kg - Lab Result Diagrams: 06/05/25 05:04 06/05/25 05:04 Lab Results-Last 24 Hrs: Lab Results-Last 24 Hours 06/04/25 06/04/25 06/04/25 Range/Units 11:55 11:55 12:00 WBC 3.5 L (3.98-10.04) x10^3/uL RBC 3.63 L (3.93-5.22) x10^6/uL Hgb 11.2 (11.2-15.7) g/dL Hct 33.9 L (34.1-44.9) % MCV 93.4 (79.4-94.8) fL MCH 30.9 (25.6-32.2) pg MCHC 33.0 (32.2-35.5) g/dL RDW 13.2 (11.7-14.4) % Plt Count 178 L (182-369) x10^3/uL MPV 10.1 (9.4-12.3) fL Gran % 64.6 (34.0-71.1) % Immature Gran % (Auto) 0.3 (0.001-0.429) % Nucleat RBC Rel Count 0.0 (0.00-0.2) % Eos # (Auto) 0 L (0.04-0.36) x10^3/uL Immature Gran # (Auto) 0.01 (0.001-0.031) x10^3u/L Absolute Lymphs (auto) 0.90 L (1.18-3.74) x10^3/uL Absolute Monos (auto) 0.33 (0.24-0.86) x10^3/uL Absolute Nucleated RBC 0.00 (0.00-0.012) x10^3u/L Lymphocytes % 25.5 (19.3-51.7) % Monocytes % 9.3 (4.7-12.5) % Eosinophils % 0.0 L (0.7-5.8) % Basophils % 0.3 (0.1-1.2) % Absolute Granulocytes 2.28 (1.56-6.13) x10^3/uL Basophils # 0.01 (0.01-0.08) x10^3/uL Sodium 135 (135-145) mmol/L Potassium 4.2 (3.5-5.1) mmol/L Chloride 108 H (98-107) mmol/L Carbon Dioxide 16 L* (22-30) mmol/L Anion Gap 15.4 H (5-15) MEQ/L BUN 15 (7-17) mg/dL Creatinine 0.86 (0.52-1.04) mg/dL Estimated GFR 83.8 ML/MIN Glucose 93 (74-106) mg/dL Lactic Acid 0.9 (0.4-2.0) Calcium 8.7 (8.4-10.2) mg/dL Total Bilirubin 0.30 (0.2-1.3) mg/dL AST 30 (14-36) U/L ALT 22 (0-35) U/L Alkaline Phosphatase 74 (38-126) U/L Serum Total Protein 6.7 (6.3-8.2) g/dL Albumin 4.2 (3.5-5.0) g/dL Procalcitonin (0.030-0.080) ng/mL TSH 3rd Generation (0.470-4.680) mIU/L Urine Color (Yellow) Urine Appearance (Clear) Urine pH (4.6-8.0) Ur Specific [place] (1.005-1.030) Urine Protein (Negative) Urine Glucose (UA) (Negative) mg/dL Urine Ketones (Negative) Urine Blood (Negative) Urine Nitrite (Negative) Urine Bilirubin (Negative) Urine Urobilinogen (0.2) mg/dL Ur Leukocyte Esterase (Negative) U Hyaline Cast (Auto) (0-2) /LPF Urine Microscopic RBC (0-5) /HPF Urine Microscopic WBC (0-5) /HPF Ur Epithelial Cells (None Seen) /HPF Amorphous Crystals (None Seen) /HPF Urine Bacteria (None Seen) /HPF Urine Culture Reflexed (NO) Urine Opiates Level (NEGATIVE) Ur Methadone (NEGATIVE) Urine Barbiturates (NEGATIVE) Ur Phencyclidine (PCP) (NEGATIVE) Urine Amphetamine (NEGATIVE) U Benzodiazepine Level (NEGATIVE) Urine Cocaine (NEGATIVE) Urine Marijuana (THC) (NEGATIVE) Influenza Type A Ag (NEGATIVE) Influenza Type B Ag (NEGATIVE) RSV (PCR) (NEGATIVE) SARS-CoV-2 (PCR) (NEGATIVE) Group A Strep Antibody (NEGATIVE) 06/04/25 06/04/25 06/04/25 Range/Units 12:00 12:01 12:01 WBC (3.98-10.04) x10^3/uL RBC (3.93-5.22) x10^6/uL Hgb (11.2-15.7) g/dL Hct (34.1-44.9) % MCV (79.4-94.8) fL MCH (25.6-32.2) pg MCHC (32.2-35.5) g/dL RDW (11.7-14.4) % Plt Count (182-369) x10^3/uL MPV (9.4-12.3) fL Gran % (34.0-71.1) % Immature Gran % (Auto) (0.001-0.429) % Nucleat RBC Rel Count (0.00-0.2) % Eos # (Auto) (0.04-0.36) x10^3/uL Immature Gran # (Auto) (0.001-0.031) x10^3u/L Absolute Lymphs (auto) (1.18-3.74) x10^3/uL Absolute Monos (auto) (0.24-0.86) x10^3/uL Absolute Nucleated RBC (0.00-0.012) x10^3u/L Lymphocytes % (19.3-51.7) % Monocytes % (4.7-12.5) % Eosinophils % (0.7-5.8) % Basophils % (0.1-1.2) % Absolute Granulocytes (1.56-6.13) x10^3/uL Basophils # (0.01-0.08) x10^3/uL Sodium (135-145) mmol/L Potassium (3.5-5.1) mmol/L Chloride (98-107) mmol/L Carbon Dioxide (22-30) mmol/L Anion Gap (5-15) MEQ/L BUN (7-17) mg/dL Creatinine (0.52-1.04) mg/dL Estimated GFR ML/MIN Glucose (74-106) mg/dL Lactic Acid (0.4-2.0) Calcium (8.4-10.2) mg/dL Total Bilirubin (0.2-1.3) mg/dL AST (14-36) U/L ALT (0-35) U/L Alkaline Phosphatase (38-126) U/L Serum Total Protein (6.3-8.2) g/dL Albumin (3.5-5.0) g/dL Procalcitonin 0.043 (0.030-0.080) ng/mL TSH 3rd Generation (0.470-4.680) mIU/L Urine Color Yellow (Yellow) Urine Appearance Turbid A (Clear) Urine pH 7.5 (4.6-8.0) Ur Specific [place] 1.015 (1.005-1.030) Urine Protein Negative (Negative) Urine Glucose (UA) Negative (Negative) mg/dL Urine Ketones Negative (Negative) Urine Blood NHT (Negative) Urine Nitrite Negative (Negative) Urine Bilirubin Negative (Negative) Urine Urobilinogen 1.0 A (0.2) mg/dL Ur Leukocyte Esterase Moderate A (Negative) U Hyaline Cast (Auto) NONE SEEN (0-2) /LPF Urine Microscopic RBC 11-20 A (0-5) /HPF Urine Microscopic WBC 6-10 A (0-5) /HPF Ur Epithelial Cells Moderate A (None Seen) /HPF Amorphous Crystals Many A (None Seen) /HPF Urine Bacteria Many A (None Seen) /HPF Urine Culture Reflexed YES (NO) Urine Opiates Level NEGATIVE (NEGATIVE) Ur Methadone NEGATIVE (NEGATIVE) Urine Barbiturates NEGATIVE (NEGATIVE) Ur Phencyclidine (PCP) NEGATIVE (NEGATIVE) Urine Amphetamine NEGATIVE (NEGATIVE) U Benzodiazepine Level NEGATIVE (NEGATIVE) Urine Cocaine NEGATIVE (NEGATIVE) Urine Marijuana (THC) NEGATIVE (NEGATIVE) Influenza Type A Ag (NEGATIVE) Influenza Type B Ag (NEGATIVE) RSV (PCR) (NEGATIVE) SARS-CoV-2 (PCR) (NEGATIVE) Group A Strep Antibody (NEGATIVE) 06/04/25 06/04/25 06/04/25 Range/Units 12:25 12:25 16:10 WBC (3.98-10.04) x10^3/uL RBC (3.93-5.22) x10^6/uL Hgb (11.2-15.7) g/dL Hct (34.1-44.9) % MCV (79.4-94.8) fL MCH (25.6-32.2) pg MCHC (32.2-35.5) g/dL RDW (11.7-14.4) % Plt Count (182-369) x10^3/uL MPV (9.4-12.3) fL Gran % (34.0-71.1) % Immature Gran % (Auto) (0.001-0.429) % Nucleat RBC Rel Count (0.00-0.2) % Eos # (Auto) (0.04-0.36) x10^3/uL Immature Gran # (Auto) (0.001-0.031) x10^3u/L Absolute Lymphs (auto) (1.18-3.74) x10^3/uL Absolute Monos (auto) (0.24-0.86) x10^3/uL Absolute Nucleated RBC (0.00-0.012) x10^3u/L Lymphocytes % (19.3-51.7) % Monocytes % (4.7-12.5) % Eosinophils % (0.7-5.8) % Basophils % (0.1-1.2) % Absolute Granulocytes (1.56-6.13) x10^3/uL Basophils # (0.01-0.08) x10^3/uL Sodium (135-145) mmol/L Potassium (3.5-5.1) mmol/L Chloride (98-107) mmol/L Carbon Dioxide (22-30) mmol/L Anion Gap (5-15) MEQ/L BUN (7-17) mg/dL Creatinine (0.52-1.04) mg/dL Estimated GFR ML/MIN Glucose (74-106) mg/dL Lactic Acid 0.8 (0.4-2.0) Calcium (8.4-10.2) mg/dL Total Bilirubin (0.2-1.3) mg/dL AST (14-36) U/L ALT (0-35) U/L Alkaline Phosphatase (38-126) U/L Serum Total Protein (6.3-8.2) g/dL Albumin (3.5-5.0) g/dL Procalcitonin (0.030-0.080) ng/mL TSH 3rd Generation (0.470-4.680) mIU/L Urine Color (Yellow) Urine Appearance (Clear) Urine pH (4.6-8.0) Ur Specific [place] (1.005-1.030) Urine Protein (Negative) Urine Glucose (UA) (Negative) mg/dL Urine Ketones (Negative) Urine Blood (Negative) Urine Nitrite (Negative) Urine Bilirubin (Negative) Urine Urobilinogen (0.2) mg/dL Ur Leukocyte Esterase (Negative) U Hyaline Cast (Auto) (0-2) /LPF Urine Microscopic RBC (0-5) /HPF Urine Microscopic WBC (0-5) /HPF Ur Epithelial Cells (None Seen) /HPF Amorphous Crystals (None Seen) /HPF Urine Bacteria (None Seen) /HPF Urine Culture Reflexed (NO) Urine Opiates Level (NEGATIVE) Ur Methadone (NEGATIVE) Urine Barbiturates (NEGATIVE) Ur Phencyclidine (PCP) (NEGATIVE) Urine Amphetamine (NEGATIVE) U Benzodiazepine Level (NEGATIVE) Urine Cocaine (NEGATIVE) Urine Marijuana (THC) (NEGATIVE) Influenza Type A Ag NEGATIVE (NEGATIVE) Influenza Type B Ag NEGATIVE (NEGATIVE) RSV (PCR) NEGATIVE (NEGATIVE) SARS-CoV-2 (PCR) NEGATIVE (NEGATIVE) Group A Strep Antibody NOT DETECTED (NEGATIVE) 06/04/25 06/04/25 06/04/25 Range/Units 16:10 16:15 19:20 WBC (3.98-10.04) x10^3/uL RBC (3.93-5.22) x10^6/uL Hgb (11.2-15.7) g/dL Hct (34.1-44.9) % MCV (79.4-94.8) fL MCH (25.6-32.2) pg MCHC (32.2-35.5) g/dL RDW (11.7-14.4) % Plt Count (182-369) x10^3/uL MPV (9.4-12.3) fL Gran % (34.0-71.1) % Immature Gran % (Auto) (0.001-0.429) % Nucleat RBC Rel Count (0.00-0.2) % Eos # (Auto) (0.04-0.36) x10^3/uL Immature Gran # (Auto) (0.001-0.031) x10^3u/L Absolute Lymphs (auto) (1.18-3.74) x10^3/uL Absolute Monos (auto) (0.24-0.86) x10^3/uL Absolute Nucleated RBC (0.00-0.012) x10^3u/L Lymphocytes % (19.3-51.7) % Monocytes % (4.7-12.5) % Eosinophils % (0.7-5.8) % Basophils % (0.1-1.2) % Absolute Granulocytes (1.56-6.13) x10^3/uL Basophils # (0.01-0.08) x10^3/uL Sodium 138 140 (135-145) mmol/L Potassium 4.1 3.7 (3.5-5.1) mmol/L Chloride 110 H 112 H (98-107) mmol/L Carbon Dioxide 19 L 20 L (22-30) mmol/L Anion Gap 12.9 12.2 (5-15) MEQ/L BUN 13 11 (7-17) mg/dL Creatinine 0.87 0.98 (0.52-1.04) mg/dL Estimated GFR 82.6 71.6 ML/MIN Glucose 89 156 H (74-106) mg/dL Lactic Acid (0.4-2.0) Calcium 8.8 8.9 (8.4-10.2) mg/dL Total Bilirubin (0.2-1.3) mg/dL AST (14-36) U/L ALT (0-35) U/L Alkaline Phosphatase (38-126) U/L Serum Total Protein (6.3-8.2) g/dL Albumin (3.5-5.0) g/dL Procalcitonin (0.030-0.080) ng/mL TSH 3rd Generation 1.955 (0.470-4.680) mIU/L Urine Color (Yellow) Urine Appearance (Clear) Urine pH (4.6-8.0) Ur Specific [place] (1.005-1.030) Urine Protein (Negative) Urine Glucose (UA) (Negative) mg/dL Urine Ketones (Negative) Urine Blood (Negative) Urine Nitrite (Negative) Urine Bilirubin (Negative) Urine Urobilinogen (0.2) mg/dL Ur Leukocyte Esterase (Negative) U Hyaline Cast (Auto) (0-2) /LPF Urine Microscopic RBC (0-5) /HPF Urine Microscopic WBC (0-5) /HPF Ur Epithelial Cells (None Seen) /HPF Amorphous Crystals (None Seen) /HPF Urine Bacteria (None Seen) /HPF Urine Culture Reflexed (NO) Urine Opiates Level (NEGATIVE) Ur Methadone (NEGATIVE) Urine Barbiturates (NEGATIVE) Ur Phencyclidine (PCP) (NEGATIVE) Urine Amphetamine (NEGATIVE) U Benzodiazepine Level (NEGATIVE) Urine Cocaine (NEGATIVE) Urine Marijuana (THC) (NEGATIVE) Influenza Type A Ag (NEGATIVE) Influenza Type B Ag (NEGATIVE) RSV (PCR) (NEGATIVE) SARS-CoV-2 (PCR) (NEGATIVE) Group A Strep Antibody (NEGATIVE) 06/05/25 06/05/25 Range/Units 05:04 05:04 WBC 3.6 L (3.98-10.04) x10^3/uL RBC 3.70 L (3.93-5.22) x10^6/uL Hgb 11.1 L (11.2-15.7) g/dL Hct 34.9 (34.1-44.9) % MCV 94.3 (79.4-94.8) fL MCH 30.0 (25.6-32.2) pg MCHC 31.8 L (32.2-35.5) g/dL RDW 13.2 (11.7-14.4) % Plt Count 178 L (182-369) x10^3/uL MPV 10.0 (9.4-12.3) fL Gran % 55.5 (34.0-71.1) % Immature Gran % (Auto) 0.5 H (0.001-0.429) % Nucleat RBC Rel Count 0.0 (0.00-0.2) % Eos # (Auto) 0 L (0.04-0.36) x10^3/uL Immature Gran # (Auto) 0.02 (0.001-0.031) x10^3u/L Absolute Lymphs (auto) 1.20 (1.18-3.74) x10^3/uL Absolute Monos (auto) 0.40 (0.24-0.86) x10^3/uL Absolute Nucleated RBC 0.00 (0.00-0.012) x10^3u/L Lymphocytes % 33.0 (19.3-51.7) % Monocytes % 11.0 (4.7-12.5) % Eosinophils % 0.0 L (0.7-5.8) % Basophils % 0.0 L (0.1-1.2) % Absolute Granulocytes 2.02 (1.56-6.13) x10^3/uL Basophils # 0 L (0.01-0.08) x10^3/uL Sodium 138 (135-145) mmol/L Potassium 4.0 (3.5-5.1) mmol/L Chloride 115 H (98-107) mmol/L Carbon Dioxide 18 L (22-30) mmol/L Anion Gap 10.0 (5-15) MEQ/L BUN 13 (7-17) mg/dL Creatinine 0.86 (0.52-1.04) mg/dL Estimated GFR 83.8 ML/MIN Glucose 92 (74-106) mg/dL Lactic Acid (0.4-2.0) Calcium 8.1 L (8.4-10.2) mg/dL Total Bilirubin < 0.10 L (0.2-1.3) mg/dL AST 21 (14-36) U/L ALT 19 (0-35) U/L Alkaline Phosphatase 76 (38-126) U/L Serum Total Protein 6.2 L (6.3-8.2) g/dL Albumin 3.7 (3.5-5.0) g/dL Procalcitonin (0.030-0.080) ng/mL TSH 3rd Generation (0.470-4.680) mIU/L Urine Color (Yellow) Urine Appearance (Clear) Urine pH (4.6-8.0) Ur Specific [place] (1.005-1.030) Urine Protein (Negative) Urine Glucose (UA) (Negative) mg/dL Urine Ketones (Negative) Urine Blood (Negative) Urine Nitrite (Negative) Urine Bilirubin (Negative) Urine Urobilinogen (0.2) mg/dL Ur Leukocyte Esterase (Negative) U Hyaline Cast (Auto) (0-2) /LPF Urine Microscopic RBC (0-5) /HPF Urine Microscopic WBC (0-5) /HPF Ur Epithelial Cells (None Seen) /HPF Amorphous Crystals (None Seen) /HPF Urine Bacteria (None Seen) /HPF Urine Culture Reflexed (NO) Urine Opiates Level (NEGATIVE) Ur Methadone (NEGATIVE) Urine Barbiturates (NEGATIVE) Ur Phencyclidine (PCP) (NEGATIVE) Urine Amphetamine (NEGATIVE) U Benzodiazepine Level (NEGATIVE) Urine Cocaine (NEGATIVE) Urine Marijuana (THC) (NEGATIVE) Influenza Type A Ag (NEGATIVE) Influenza Type B Ag (NEGATIVE) RSV (PCR) (NEGATIVE) SARS-CoV-2 (PCR) (NEGATIVE) Group A Strep Antibody (NEGATIVE) Micro Results-Entire Visit: Microbiology 06/04/25 12:01 Urine Culture - Preliminary Urine, Void GRAM NEGATIVE ID AND SENSITIVITY PENDING - Radiology Exams Ordered Rad Exams-Entire Visit: Radiology Procedures Category Date Time Status HEAD WITHOUT CONTRAST [CT] Stat Exams 06/04/25 12:23 Completed Discharge Exam General Appearance: no apparent distress Neurologic Exam: alert, oriented x 3, cooperative Eye Exam: PERRL Ears, Nose, Throat Exam: normal ENT inspection Neck Exam: normal inspection Respiratory Exam: normal breath sounds, lungs clear Cardiovascular Exam: regular rate/rhythm, normal heart sounds Gastrointestinal/Abdomen Exam: soft, normal bowel sounds Pelvic Exam: deferred Rectal Exam: deferred Back Exam: normal inspection Extremity Exam: normal inspection Skin Exam: normal color Final Diagnosis/Problem List - Final Discharge Diagnosis/Problem (1) Metabolic encephalopathy Current Visit: Yes Status: Acute Assessment & Plan: Likely secondary to infection and mild metabolic derangement. CT head negative; no focal deficits observed. Improved with IV fluids and infection management. Continue oral hydration and complete antibiotic course. Caregiver to monitor for any recurrent confusion or new neurological symptoms. Follow up with PCP within one week. Code(s): G93.41 - METABOLIC ENCEPHALOPATHY (2) UTI (urinary tract infection) Current Visit: Yes Status: Acute Assessment & Plan: UA positive for leukocyte esterase, RBCs, and bacteria. Treated with IV ceftriaxone inpatient; transitioned to cefdinir at discharge. Ucult with gram negative ID sensitivity pending Encourage hydration and bladder emptying at regular intervals. PCP to review final culture for targeted antibiotic adjustment. Return for fever, flank pain, or worsening confusion. Code(s): N39.0 - URINARY TRACT INFECTION, SITE NOT SPECIFIED (3) Metabolic acidosis Current Visit: Yes Status: Acute Assessment & Plan: Likely dehydration and infection-related; initial CO2 16- 18 at discharge. Continue oral hydration; monitor intake and urine output. Repeat BMP as outpatient to confirm normalization. Code(s): E87.20 - ACIDOSIS, UNSPECIFIED (4) Seizure disorder Current Visit: Yes Status: Acute Assessment & Plan: No breakthrough events during admission. Continue home antiepileptic regimen without interruption. Maintain adherence and follow neurology as scheduled. Code(s): G40.909 - EPILEPSY, UNSP, NOT INTRACTABLE, WITHOUT STATUS EPILEPTICUS (5) Hypothyroid Current Visit: Yes Status: Acute Assessment & Plan: Continue levothyroxine at home dose. Recommend TSH recheck within 46 weeks or sooner if symptoms change. TSH WNL Code(s): E03.9 - HYPOTHYROIDISM, UNSPECIFIED (6) ADHD Current Visit: Yes Status: Acute Assessment & Plan: Continue current therapy; monitor for insomnia or agitation. If sleep disturbance persists, reassess stimulant regimen with outpatient provider. (7) Pancytopenia Current Visit: Yes Status: Acute Assessment & Plan: WBC 3.5, RBC 3.70, Plt 178. Repeat CBC in 12 weeks through PCP to ensure recovery. If persistent, consider hematology referral. Code(s): D61.818 - OTHER PANCYTOPENIA - Discharge Disposition: Home, Self-Care Condition: Stable Prescriptions: No Action Cetirizine HCl 10 mg PO DAILY cloZAPine [Clozapine] 50 mg PO BID cloZAPine [Clozapine] 100 mg PO BID Desmopressin Acetate 0.4 mg PO HS Fluoxetine HCl 10 mg [Prozac 10 mg] 20 mg PO DAILY Levothyroxine Sodium 100 Mcg [Synthroid 100 Mcg] 100 mcg PO DAILY Levothyroxine Sodium 50 Mcg [Synthroid 50 Mcg] 50 mcg PO DAILY LORazepam [Lorazepam] 0.25 mg PO HS Melatonin 10 mg PO HS Omeprazole 20 mg PO DAILY Polyethylene Glycol 3350 17 gm [Miralax Powder 17GM PACKET] 17 gm PO DAILY Propranolol HCl 40 mg PO DAILY Topiramate 100 mg [Topamax 100 MG] 200 mg PO QAM Trazodone HCl 50 mg [Desyrel 50 mg] 100 mg PO HS Cranberry Conc/C/Bacill Coag [Azo Cranberry Tablet] 1 tab PO BID lamoTRIgine [Lamictal] 150 mg PO BID Polyethylene Glycol 400 [Visine Dry Eye Relief] 15 ml OP TID Acetaminophen 325 mg [Tylenol 325 mg] 650 mg PO Q6HPRN PRN PRN Reason: Pain Sumatriptan Succinate [Imitrex] 100 mg PO UD Non-Formulary Drug [Non-Formulary Item] 1 each TOP BID Follow up with: ELADIA GUILLERMO NP [Primary Care Provider, [facility]] - 06/17/25 2:00 pm
--- NOTE | 2025-06-05 14:21 | PCM.DCORD ---
- Discharge Discharge Date: 06/05/25 Disposition: Home, Self-Care Condition: Stable Prescriptions: New Cefdinir 300 mg [Omnicef 300 mg] 300 mg PO BID PRN 7 Days #14 cap Continue Cetirizine HCl 10 mg PO DAILY cloZAPine [Clozapine] 50 mg PO BID cloZAPine [Clozapine] 100 mg PO BID Desmopressin Acetate 0.4 mg PO HS Fluoxetine HCl 10 mg [Prozac 10 mg] 20 mg PO DAILY Levothyroxine Sodium 100 Mcg [Synthroid 100 Mcg] 100 mcg PO DAILY Levothyroxine Sodium 50 Mcg [Synthroid 50 Mcg] 50 mcg PO DAILY LORazepam [Lorazepam] 0.25 mg PO HS Melatonin 10 mg PO HS Omeprazole 20 mg PO DAILY Polyethylene Glycol 3350 17 gm [Miralax Powder 17GM PACKET] 17 gm PO DAILY Propranolol HCl 40 mg PO DAILY Topiramate 100 mg [Topamax 100 MG] 200 mg PO QAM Trazodone HCl 50 mg [Desyrel 50 mg] 100 mg PO HS Cranberry Conc/C/Bacill Coag [Azo Cranberry Tablet] 1 tab PO BID lamoTRIgine [Lamictal] 150 mg PO BID Polyethylene Glycol 400 [Visine Dry Eye Relief] 15 ml OP TID Acetaminophen 325 mg [Tylenol 325 mg] 650 mg PO Q6HPRN PRN PRN Reason: Pain Sumatriptan Succinate [Imitrex] 100 mg PO UD Non-Formulary Drug [Non-Formulary Item] 1 each TOP BID Instructions: Urinary tract infections in adults Follow up with: ELADIA GUILLERMO NP [Primary Care Provider, [facility]] - 06/17/25 2:00 pm
== END 2025-06-05 14:22 | disposition home or self-care (01) ==
LOC: ED 11:22 → MED SURG 15:20
PROVIDERS: ADMIT Internal Medicine; ATTEND Internal Medicine
DX: G93.41 Metabolic encephalopathy (principal); N39.0 Urinary tract infection, site not specified; K21.9 Gastro-esophageal reflux disease without esophagitis; E03.9 Hypothyroidism, unspecified; D72.819 Decreased white blood cell count, unspecified; E87.20 Acidosis, unspecified; G40.909 Epilepsy, unspecified, not intractable, without status epilepticus; F90.9 Attention-deficit hyperactivity disorder, unspecified type; D61.818 Other pancytopenia; Z79.899 Other long term (current) drug therapy
CPT/HCPCS: 36415; 70450; 80048; 80053; 80307; 81001; 83605; 84145; 84443; 85025; 87040; 87086; 87637; 87651; 93005; 93041; 94760; 96365; 99285; Q3014